=== PATIENT | female | born 1970 | race Caucasian/White ===

== ENCOUNTER 2016-04-23 10:56 | Outpatient (CLI) | payer OTHER ==
[2013-01-31 19:41] VITALS: BP 115/62
[2016-04-23 11:36] LABS: eGFR (African) > 60; eGFR (Non-African) > 60
--- NOTE | 2016-04-23 17:40 | Diagnostic Imaging Report ---
[facility] [address] [facility].[address] [id number] Report Submission Date: Apr 23, 2016 3:31:30 PM CDT Patient Study Name: MYLES FRAZIER Date: Apr 23, 2016 11:06:43 AM CDT Modality Type: CR Gender: F Description: PELVIS : 74 Institution: [facility] Physician: SIDRA COLON 2 views of the right hip History: Right hip pain, bursitis Findings: No comparison studies No evidence of acute fracture or dislocation of the right hip. Right sacroiliac joint is intact Slight displacement of the fat pads around the right hip, possibly related to known bursitis Impression: No evidence of acute fracture or dislocation right hip Electronically signed on Apr 23, 2016 3:31:30 PM CDT by: Saloni SANDOVAL
== END 2016-04-23 10:57 ==
LOC: LAB 10:56
PROVIDERS: ATTEND Physician Assistant
DX: D22.9 Melanocytic nevi, unspecified (principal); M70.71 Other bursitis of hip, right hip
CPT/HCPCS: 36415; 73502; 80053

== ENCOUNTER 2016-04-23 14:20 | Outpatient (CLI) | payer OTHER ==
[2013-01-31 19:41] VITALS: BP 115/62
== END 2016-04-23 14:21 ==
LOC: LAB 14:20
PROVIDERS: ATTEND Physician Assistant
DX: J34.89 Other specified disorders of nose and nasal sinuses (principal)
CPT/HCPCS: 87070; 87186

== ENCOUNTER 2017-08-28 09:59 | Outpatient (CLI) | payer OTHER ==
[2013-01-31 19:41] VITALS: BP 115/62
[2017-08-28 10:56] LABS: eGFR (African) > 60; eGFR (Non-African) > 60
--- NOTE | 2017-08-28 18:24 | Diagnostic Imaging Report ---
BRADFORD CISNEROS [facility] [address] [facility].[address] [address] Report Submission Date: Aug 28, 2017 11:11:44 AM CDT Patient Study Name: MYLES FRAZIER Date: Aug 28, 2017 10:19:03 AM CDT Modality Type: DX Gender: F Description: SPINE : 74 Institution: [facility] Physician: BRADFORD CISNEROS Thoracic spine History: Mid back pain AP, lateral and swimmer's views of the thoracic spine were obtained which demonstrate multilevel anterior and right lateral marginal osteophytes at the mid to lower thoracic spine consistent with diffuse idiopathic skeletal hyperostosis. Vertebral body height is maintained. There is mild disc space narrowing at several levels of the midthoracic spine. Pedicles are intact. Impression: No acute osseous abnormality. Findings consistent with diffuse idiopathic skeletal hyperostosis as described. Mild disc space narrowing at several levels of the mid to lower thoracic spine. Electronically signed on Aug 28, 2017 11:11:44 AM CDT by: Floresita SANDOVAL
== END 2017-08-28 14:06 ==
LOC: LAB 09:59
PROVIDERS: ATTEND Physician Assistant
DX: M54.9 Dorsalgia, unspecified (principal); R10.9 Unspecified abdominal pain; Z13.6 Encounter for screening for cardiovascular disorders
CPT/HCPCS: 36415; 72072; 80053; 80061

== ENCOUNTER 2018-10-15 14:48 | Outpatient (CLI) | payer OTHER ==
[2013-01-31 19:41] VITALS: BP 115/62
[2018-10-15 15:42] LABS: BASOPHILS % 0.6 % (0.0-1.5); NEUTROPHILS # 7.7 # k/uL (1.4-7.7)
[2018-10-15 16:04] LABS: HDL 69 mg/dL (>40); eGFR (Non-African) > 60
== END 2018-10-15 14:50 ==
LOC: LAB 14:48
PROVIDERS: ATTEND Family Medicine
DX: M79.671 Pain in right foot (principal); M79.672 Pain in left foot; E78.5 Hyperlipidemia, unspecified; R53.82 Chronic fatigue, unspecified
CPT/HCPCS: 36415; 80053; 80061; 84439; 84443; 84481; 85025